=== PATIENT | male | born 1985 | race Caucasian/White ===

== ENCOUNTER 2024-09-21 12:58 | Observation (INO) | payer OTHER ==
--- NOTE | 2024-09-21 13:35 | XR ---
EXAMINATION TYPE: XR chest 2V DATE OF EXAM: 09/21/2024 1:29 PM COMPARISON: Chest radiographs from 09/21/2024. CLINICAL INDICATION: Male, 38 years old with history of Chest Pain; TECHNIQUE: XR chest 2V Frontal and lateral views of the chest. FINDINGS: Lungs/Pleura: There is no evidence of pleural effusion, focal consolidation, or pneumothorax. Pulmonary vascularity: Unremarkable. Heart/mediastinum: Cardiomediastinal silhouette is unremarkable. Musculoskeletal: No acute osseous pathology. Other findings: None IMPRESSION: No acute cardiopulmonary disease/process. [facility], , 09/21/2024 1:33 PM
[2024-09-21 13:38] LABS: Basophils # (A) 0.1 k/uL (0-0.2); Basophils % (A) 1 %; Eosinophils # (A) 0.2 k/uL (0-0.7); Eosinophils % (A) 2 %; HCT 49.4 % (39.0-53.0); HGB 16.2 gm/dL (13.0-17.5); Lymphocytes # (A) 2.1 k/uL (1.0-4.8); Lymphocytes % (A) 16 %; MCH 31.3 pg (25.0-35.0); MCHC 32.9 g/dL (31.0-37.0); MCV 95.2 fL (80.0-100.0); Monocytes # (A) 0.5 k/uL (0-1.0); Monocytes % (A) 4 %; Neutrophils # (A) 10.1 k/uL (1.3-7.7); Neutrophils % (A) 76 %; Platelet Count 331 k/uL (150-450); RBC 5.18 m/uL (4.30-5.90); RDW 12.3 % (11.5-15.5); WBC 13.3 k/uL (3.8-10.6)
[2024-09-21 13:47] LABS: Partial Thromboplastin Time 25.3 sec (22.0-30.0)
[2024-09-21 13:50] LABS: ALT 34 U/L (4-49); AST 26 U/L (17-59); African American GFR (CKD) >90 (>60 ml/min/1.73 sqM); Albumin 4.7 g/dL (3.5-5.0); Alkaline Phosphatase 101 U/L (38-126); Anion Gap 10 mmol/L; Blood Urea Nitrogen 10 mg/dL (9-20); Calcium 9.9 mg/dL (8.4-10.2); Carbon Dioxide 23 mmol/L (22-30); Chloride 106 mmol/L (98-107); Glucose 153 mg/dL (74-99); Magnesium 1.7 mg/dL (1.6-2.3); Non-African American GFR(CKD) >90 (>60 ml/min/1.73 sqM); Potassium 4.2 mmol/L (3.5-5.1); Sodium 139 mmol/L (137-145); Total Bilirubin 0.6 mg/dL (0.2-1.3); Total Protein 7.7 g/dL (6.3-8.2)
--- NOTE | 2024-09-21 14:08 | ED ---
Chest Pain HPI - General Chief Complaint: Chest Pain Stated Complaint: high bp, chest pain, hand numb Time Seen by Provider: 09/21/24 14:07 Source: patient, RN notes reviewed Mode of arrival: wheelchair Limitations: no limitations - History of Present Illness Initial Comments: 38-year-old male presenting with chest pain x 1 day with associated left hand numbness. States last night around 9 PM he began to experience an intermittent, sharp, left-sided chest pain. At first he attributed this to anxiety, however states it has worsened this morning and has been began to experience numbness of his left hand as well. Patient states he took his blood pressure at his aunts house and was high. Denies any known past medical history however states he has not been to a physician in a long time. Does not take any medications. States he has an extensive cardiac family history. - Related Data Home Medications Medication Instructions Recorded Confirmed No Known Home Medications 09/21/24 09/21/24 Allergies Allergy/AdvReac Type Severity Reaction Status Date / Time bee venom protein (honey bee) Allergy Anaphylaxis Verified 09/21/24 18:19 shellfish derived [Shellfish] Allergy Anaphylaxis Verified 09/21/24 18:19 Review of Systems ROS Statement: Those systems with pertinent positive or pertinent negative responses have been documented in the HPI. ROS Other: All systems not noted in ROS Statement are negative. EKG Findings - EKG Results: EKG: interpreted by GOKUL (EKG reveals normal sinus rhythm with frequent PVCs, no ST changes. Ventricular rate 92 bpm, OR interval 154, QRS duration 129, QT/QTc 365/450) Past Medical History Past Medical History: No Reported History Past Surgical History: Orthopedic Surgery Smoking Status: Current every day smoker Past Alcohol Use History: None Reported Past Drug Use History: Marijuana General Exam - General Exam Comments Initial Comments: Visual Physical Exam Vital signs reviewed General: Well-appearing, nontoxic, no acute distress. Head: Normocephalic, atraumatic Eyes: PERRLA, EOMI ENT: Airway patent Chest: Nonlabored breathing Skin: No visual rash, normal skin tone Neuro: Alert and oriented 3 Musculoskeletal: No gross abnormalities Limitations: no limitations General appearance: alert, in no apparent distress Head exam: Present: atraumatic, normocephalic, normal inspection Eye exam: Present: normal appearance, PERRL, EOMI. Absent: scleral icterus, conjunctival injection, periorbital swelling ENT exam: Present: normal exam, mucous membranes moist Respiratory exam: Present: normal lung sounds bilaterally. Absent: respiratory distress, wheezes, rales, rhonchi, stridor Cardiovascular Exam: Present: regular rate, normal rhythm, normal heart sounds. Absent: systolic murmur, diastolic murmur, rubs, gallop, clicks GI/Abdominal exam: Present: soft, normal bowel sounds. Absent: distended, tenderness, guarding, rebound, rigid Neurological exam: Present: alert, oriented X3, CN II-XII intact Psychiatric exam: Present: normal affect, normal mood Skin exam: Present: warm, dry, intact, normal color. Absent: rash Course Vital Signs 09/21/24 09/21/24 09/21/24 13:01 16:39 16:42 Temperature 97.9 F Pulse Rate 103 H 78 Pulse Rate [ 78 Apical] Respiratory 22 19 Rate Blood Pressure 207/98 180/122 O2 Sat by Pulse 97 98 Oximetry Chest Pain MDM - MDM I completed the quick note portion of this chart signed Tia Carias PA-C Was pt. sent in by a medical professional or institution (ROBE Robertson, OCEANIC SCIENCES PROFESSOR, urgent care, hospital, or care home...) When possible be specific @ -No Did you speak to anyone other than the patient for history (EMS, parent, family, police, friend...)? What history was obtained from this source @ -No Did you review nursing and triage notes (agree or disagree)? Why? @ -I reviewed and agree with nursing and triage notes Were old charts reviewed (outside hosp., previous admission, EMS record, old EKG, old radiological studies, urgent care reports/EKG's, care home records)? Report findings @ -No old charts were reviewed Differential Diagnosis (chest pain, altered mental status, abdominal pain women, abdominal pain men, vaginal bleeding, weakness, fever, dyspnea, syncope, headache, dizziness, GI bleed, back pain, seizure, CVA, palpatations, mental health, musculoskeletal)? @ -Differential Chest Pain: Stable Angina, Unstable Angina, STEMI, NSTEMI Aortic Dissection, Pneumothorax, Musculoskeletal, Esophageal Spasm GERD, Cholecystitis, Pancreatitis, Zoster, this is not meant to be an all-inclusive list. EKG interpreted by me (3pts min.). @ -As above X-rays interpreted by me (1pt min.). @ -X-ray reveals no acute process CT interpreted by me (1pt min.). @ -None done U/S interpreted by me (1pt. min.). @ -None done What testing was considered but not performed or refused? (CT, X-rays, U/S, labs)? Why? @ -None What meds were considered but not given or refused? Why? @ -None Did you discuss the management of the patient with other professionals (professionals i.e. , PA, OCEANIC SCIENCES PROFESSOR, lab, RT, psych nurse, social sciences department chair, manufacturing director, teacher, senior grants officer, nurse case management)? Give summary @ -I spoke with Shilpi from [facility] who accepts admission for ACS rule out Was smoking cessation discussed for >3mins.? @ -No Was critical care preformed (if so, how long)? @ -No Were there social determinants of health that impacted care today? How? (Homelessness, low income, unemployed, alcoholism, drug addiction, transportation, low edu. Level, literacy, decrease access to med. care, long term, rehab)? @ -No Was there de-escalation of care discussed even if they declined (Discuss DNR or withdrawal of care, Hospice)? DNR status @ -No What co-morbidities impacted this encounter? (DM, HTN, Smoking, COPD, CAD, Cancer, CVA, ARF, Chemo, Hep., AIDS, mental health diagnosis, sleep apnea, morbid obesity)? @ -None Was patient admitted / discharged? Hospital course, mention meds given and route, prescriptions, significant lab abnormalities, going to OR and other pertinent info. @ -Admitted. This is a 38-year-old male presenting to the ER chief complaint of chest pain x 1 day. No known risk factors however patient states he has not been seen by a doctor in time. Patient is initially hypertensive at 207/98, tachycardic at 103 bpm. Patient was given loading dose of aspirin and nitroglycerin patient reports mild improvement of symptoms. EKG reveals normal sinus rhythm with frequent PVCs. Lab work markable for mild leukocytosis at 13.3 and elevated glucose at 153. Chest x-ray reveals no acute process. Results discussed with patient. Patient remains hypertensive at 180/122 on reevaluation with heart rate of 70 bpm. I spoke with Shilpi from [facility] who accepts admission for ACS rule out as history is concerning for ACS. Patient is agreeable to plan. Undiagnosed new problem with uncertain prognosis? @ -No Drug Therapy requiring intensive monitoring for toxicity (Heparin, Nitro, Insulin, Cardizem)? @ -No Were any procedures done? @ -No Diagnosis/symptom? @ -Chest pain Acute, or Chronic, or Acute on Chronic? @ -Acute Uncomplicated (without systemic symptoms) or Complicated (systemic symptoms)? @ -Uncomplicated Side effects of treatment? @ -No Exacerbation, Progression, or Severe Exacerbation? @ -No Poses a threat to life or bodily function? How? (Chest pain, [place], [place], pneumonia, PE, COPD, DKA, ARF, appy, cholecystitis, CVA, Diverticulitis, Homicidal, Suicidal, threat to staff... and all critical care pts) @ -Yes, chest pain Disposition Clinical Impression: Chest pain Disposition: ADMITTED IP TO THIS HOSP Referrals: [facility] [NON-STAFF] - 1-2 days [facility] [NON-STAFF] - 1-2 days None,Stated [Primary Care Provider] - 1-2 days Forms: Area PCPs Time of Disposition: 18:45
[2024-09-21] MEDS: ASPIRIN 81 MG PO STA (17:15)
[2024-09-21] MEDS: NITROGLYCERIN SL TABS 0.4 MG TAB SUBLINGUAL STA (17:16)
[2024-09-21] MEDS ORDERED: NALOXONE 0.4 MG/ML 1 ML VIAL IV PRN (18:42)
[2024-09-21] MEDS ORDERED: KETOROLAC 15 MG/ML 1 ML VIAL IVP PRN (18:42)
[2024-09-21] MEDS ORDERED: ONDANSETRON 4 MG/2 ML VIAL IVP PRN (18:42)
[2024-09-21] MEDS ORDERED: MORPHINE SULFATE 4 MG/ML SYRINGE IV PRN (18:42)
[2024-09-22] MEDS: hydrALAZINE HCL 20 MG/ML 1 ML VIAL IVP STA (01:19)
[2024-09-22] MEDS: ACETAMINOPHEN TAB 325 MG TAB PO PRN (01:26)
[2024-09-22] MEDS: amLODIPine 10 MG TAB PO SCH (09:34)
[2024-09-22] MEDS: hydrALAZINE HCL 20 MG/ML 1 ML VIAL IVP PRN (09:34)
[2024-09-22] MEDS ORDERED: METOPROLOL TARTRATE 12.5 MG TAB PO SCH (10:00)
[2024-09-22] MEDS: NICOTINE 14MG/24HR PATCH TRANSDERM SCH (11:23)
[2024-09-22] MEDS: ASPIRIN 81 MG PO SCH (11:24)
[2024-09-22] MEDS: METOPROLOL TARTRATE 25 MG TAB PO SCH (11:24)
[2024-09-22] MEDS: hydrALAZINE HCL 25 MG TAB PO SCH (11:24)
--- NOTE | 2024-09-22 11:46 | P.CRDCN ---
History of Present Illness Consult date: 09/22/24 Consult reason: chest pain History of present illness: This is a 38-year-old male patient does not follow with a physician and denies any past medical history. We have been asked to evaluate the patient for chest pain. Patient states that he developed sharp pain that is a little bit of pressure comes and goes in his chest. Onset while he was sitting. It does not seem to occur with physical activity. It started about 2 to 3 hours after d inner last night. He also complains of hearing his heartbeat in his right ear. Patient is normally active, works in a [employer] factory. Blood pressure 196/88, heart rate 85, pulse ox 98% on room air. Repeat blood pressure 170/89. Patient is an active smoker. Patient has been started on amlodipine 10 mg IV hydralazine as needed. -EKG: Sinus rhythm PVCs, mild IVCD -Chest x-ray: No acute process -Laboratory studies: WBC 13.3, hemoglobin 16.2, electrolytes and renal function normal. Troponin negative x 3. -Home cardiac medications: None Review Of Systems: At the time of my exam: CONSTITUTIONAL: Denies fever or chills. HEENT: Denies blurred vision, vision changes, or eye pain. Denies hemoptysis CARDIOVASCULAR: Denies chest pain. Denies orthopnea. Denies PND. Denies palpitations RESPIRATORY: Denies shortness of breath. GASTROINTESTINAL: Denies abdominal pain. Denies nausea or vomiting. HEMATOLOGIC: Denies bleeding disorders. GENITOURINARY: Denies any blood in urine. SKIN: Denies puritis. Denies rash. Physical examination: Gen: This is a obese 38-year-old male in no acute distress VS: reviewed HEENT: Head is atraumatic, normocephalic. Pupils equal, round. Sclerae is anicteric. NECK: Supple. No JVD. LUNGS: Clear to auscultation. No wheezes or rhonchi. No intercostal retract ions. HEART: Regular rate and rhythm. No murmur. ABDOMEN: Soft No tenderness. EXTREMITIES: No pedal edema. No calf tenderness. NEUROLOGICAL: Patient is awake, alert and oriented x3. Assessment: Atypical chest pain, acute coronary syndrome ruled out Accelerated hypertension Chest pain possibly related to accelerated hypertension Tobacco use and dependence Plan: Continue patient on amlodipine 10 mg daily Change aspirin to 81 mg daily Discontinue IV hydralazine as needed and start patient on hydralazine 25 mg 3 times daily Start patient on Lopressor 25 mg 3 times daily Monitor blood pressure closely Obtain 2-D echocardiogram and Doppler study to assess cardiac structure and function Schedule patient for exercise stress test tomorrow when blood pressure is hopefully improved. Smoking cessation, patient will be provided the [place] quit line information at discharge Further recommendations to follow based upon clinical course Thank you kindly for this consultation. Nurse practitioner note has been reviewed, I agree with documented findings and plan of care. Patient was seen and examined. Past Medical History Past Medical History: No Reported History History of Any Multi-Drug Resistant Organisms: None Reported Past Surgical History: Orthopedic Surgery Smoking Status: Current every day smoker Medications and Allergies Home Medications Medication Instructions Recorded Confirmed Type No Known Home Medications 09/21/24 09/21/24 History Allergies Allergy/AdvReac Type Severity Reaction Status Date / Time bee venom protein (honey bee) Allergy Anaphylaxis Verified 09/21/24 18:19 shellfish derived [Shellfish] Allergy Anaphylaxis Verified 09/21/24 18:19 Physical Exam Vitals: Vital Signs Temp Pulse Pulse Pulse Resp BP BP 09/22/24 07:00 85 16 196/88 09/22/24 02:00 97.9 F 61 09/21/24 23:20 98.1 F 72 18 09/21/24 23:15 97.8 F 61 18 145/87 09/21/24 20:41 75 16 155/73 09/21/24 16:42 78 09/21/24 16:39 78 19 180/122 09/21/24 13:01 97.9 F 103 H 22 207/98 BP Pulse Ox 09/22/24 07:00 98 09/22/24 02:00 161/82 99 09/21/24 23:20 181/113 97 09/21/24 23:15 93 L 09/21/24 20:41 97 09/21/24 16:42 09/21/24 16:39 98 09/21/24 13:01 97 Intake and Output 09/21/24 09/22/24 09/22/24 22:59 06:59 14:59 Intake Total 118 Balance 118 Intake: Oral 118 Other: Voiding Method Toilet Weight 119.295 kg Results 09/21/24 13:20 09/21/24 13:20 Cardiac Enzymes 09/21/24 09/21/24 09/21/24 Range/Units 13:20 13:20 19:45 AST 26 (17-59) U/L Troponin I <0.012 <0.012 (0.000-0.034) ng/mL 09/22/24 Range/Units 00:42 AST (17-59) U/L Troponin I <0.012 (0.000-0.034) ng/mL Coagulation 09/21/24 Range/Units 13:20 PT 11.0 (10.0-12.5) sec APTT 25.3 (22.0-30.0) sec CBC 09/21/24 Range/Units 13:20 WBC 13.3 H (3.8-10.6) k/uL RBC 5.18 (4.30-5.90) m/uL Hgb 16.2 (13.0-17.5) gm/dL Hct 49.4 (39.0-53.0) % Plt Count 331 (150-450) k/uL Comprehensive Metabolic Panel 09/21/24 Range/Units 13:20 Sodium 139 (137-145) mmol/L Potassium 4.2 (3.5-5.1) mmol/L Chloride 106 (98-107) mmol/L Carbon Dioxide 23 (22-30) mmol/L BUN 10 (9-20) mg/dL Creatinine 0.72 (0.66-1.25) mg/dL Glucose 153 H (74-99) mg/dL Calcium 9.9 (8.4-10.2) mg/dL AST 26 (17-59) U/L ALT 34 (4-49) U/L Alkaline Phosphatase 101 (38-126) U/L Total Protein 7.7 (6.3-8.2) g/dL Albumin 4.7 (3.5-5.0) g/dL Current Medications Generic Name Dose Route Start Last Admin Trade Name Freq PRN Reason Stop Dose Admin Acetaminophen 650 mg 09/21/24 18:42 09/22/24 01:26 Acetaminophen Tab 325 Mg Tab PO 650 mg Q6HR PRN Administration Mild Pain or Fever > 100.5 Amlodipine Besylate 10 mg 09/22/24 09:30 09/22/24 09:34 Amlodipine 10 Mg Tab PO 10 mg DAILY WANDER Administration Hydralazine HCl 10 mg 09/22/24 09:16 09/22/24 09:34 Hydralazine Hcl 20 Mg/Ml 1 Ml Vial IVP 10 mg Q4HR PRN Administration Blood Pressure - High Ketorolac Tromethamine 15 mg 09/21/24 18:42 Ketorolac 15 Mg/Ml 1 Ml Vial IVP 09/24/24 18:44 Q6HR PRN Moderate Pain (Scale 4 to 6) Morphine Sulfate 4 mg 09/21/24 18:42 Morphine Sulfate 4 Mg/Ml Syringe IV Q4HR PRN Severe Pain (Scale 7 to 10) Naloxone HCl 0.2 mg 09/21/24 18:42 Naloxone 0.4 Mg/Ml 1 Ml Vial IV Q2M PRN Opioid Reversal Ondansetron HCl 4 mg 09/21/24 18:42 Ondansetron 4 Mg/2 Ml Vial IVP Q8HR PRN Nausea And Vomiting Intake and Output 09/21/24 09/22/24 09/22/24 22:59 06:59 14:59 Intake Total 118 Balance 118 Intake: Oral 118 Other: Voiding Method Toilet Weight 119.295 kg 09/21/24 13:20 09/21/24 13:20
--- NOTE | 2024-09-22 15:39 | P.HPIM ---
History of Present Illness H&P Date: 09/22/24 This is a pleasant 38-year-old male who presented to the emergency department with chest pain and chest pressure and also reports feeling dizzy and lightheaded with double vision. Patient reports he does not have a primary care provider and has not seen a doctor in over 10 years and denies any significant past medical history other than smokes cigarettes. Troponins were negative x 3 and other labs reviewed and within normal limits. Blood sugar was 153 random will add a hemoglobin A1c as patient has not been seen by a doctor in over 10 years has poor eating habits and is obese. Chest x-ray showing no acute cardiopulmonary process, EKG was done showing sinus rhythm with frequent PVCs. Patient will be admitted on telemetry monitoring with cardiology on consult. Cardiology did evaluate the patient early this morning recommend n.p.o. at midnight and will undergo treadmill stress testing. 2D echo is ordered and pending at this time. REVIEW OF SYSTEMS: CONSTITUTIONAL: No fever, no malaise, no fatigue. HEENT: No recent visual problems or hearing problems. Denied any sore throat. CARDIOVASCULAR: Reports of chest pain that has resolved, orthopnea, PND, no palpitations, no syncope. PULMONARY: No shortness of breath, no cough, no hemoptysis. GASTROINTESTINAL: No diarrhea, no nausea, no vomiting, no abdominal pain. NEUROLOGICAL: No headaches, no weakness, no numbness. HEMATOLOGICAL: Denies any bleeding or petechiae. GENITOURINARY: Denies any burning micturition, frequency, or urgency. MUSCULOSKELETAL/RHEUMATOLOGICAL: Denies any joint pain, swelling, or any muscle pain. ENDOCRINE: Denies any polyuria or polydipsia. The rest of the 14-point review of systems is negative. PHYSICAL EXAMINATION: GENERAL: The patient is alert and oriented x3, not in any acute distress. Well developed, obese HEENT: Pupils are round and equally reacting to light. EOMI. No scleral icterus. No conjunctival pallor. Normocephalic, atraumatic. No pharyngeal erythema. No thyromegaly. CARDIOVASCULAR: S1 and S2 muffled PULMONARY: Chest is clear to auscultation, no wheezing or crackles. ABDOMEN: Soft, obese, nontender, nondistended, normoactive bowel sounds. No palpable organomegaly. MUSCULOSKELETAL: No joint swelling or deformity. EXTREMITIES: No cyanosis, clubbing, or pedal edema. NEUROLOGICAL: Gross neurological examination did not reveal any focal deficits. SKIN: No rashes. Assessment: Chest pain, ruled out ACS Hypertension, no reported history although most likely has been having hypertension. Patient has not been to a doctor in at least over 10 years Obesity with a BMI of 36.7 Mild leukocytosis, possibly reactive. Patient denies any shortness of breath or cough, denies any pain or burning or frequency with urination and does not appear infectious Continued ongoing nicotine abuse GI prophylaxis DVT prophylaxis Full code Plan: Patient was admitted under observation for cardiology evaluation for chest pain. ACS was ruled out 2D echo is ordered and pending and patient will undergo exercise stress test in the morning Follow-up on labs and will also obtain hemoglobin A1c as blood sugar was elevated with no significant history although patient reports has not been to a doctor in over 10 years N.p.o. at midnight for stress testing and will follow-up with cardiology once report is available Patient being started on blood pressure medications and will monitor overnight with continued telemetry monitoring and hopeful for improvements in blood pres sure Encourage complete tobacco cessation and will provide a nicotine patch Possible discharge planning in the next 24 to 48 hours Patient will need resources to establish with a primary care provider on discharge The impression and plan of care has been dictated by Shilpi Mahmood, Nurse Practitioner as directed. Dr. Dia MD I have performed a history and examination and MDM of this patient, discussed the same with the dictator, and agree with the dictator's assessment and plan as written ,documented as a scribe. Based on total visit time, I have performed more than 50% of the visit. Past Medical History Past Medical History: No Reported History History of Any Multi-Drug Resistant Organisms: None Reported Past Surgical History: Orthopedic Surgery Smoking Status: Current every day smoker Medications and Allergies Home Medications Medication Instructions Recorded Confirmed Type No Known Home Medications 09/21/24 09/21/24 History Allergies Allergy/AdvReac Type Severity Reaction Status Date / Time bee venom protein (honey bee) Allergy Anaphylaxis Verified 09/21/24 18:19 shellfish derived [Shellfish] Allergy Anaphylaxis Verified 09/21/24 18:19 Physical Exam Vitals: Vital Signs Temp Pulse Pulse Pulse Resp BP BP 09/22/24 02:00 97.9 F 61 161/82 09/21/24 23:20 98.1 F 72 18 181/113 09/21/24 23:15 97.8 F 61 18 145/87 09/21/24 20:41 75 16 155/73 09/21/24 16:42 78 09/21/24 16:39 78 19 180/122 09/21/24 13:01 97.9 F 103 H 22 207/98 Pulse Ox 09/22/24 02:00 99 09/21/24 23:20 97 09/21/24 23:15 93 L 09/21/24 20:41 97 09/21/24 16:42 09/21/24 16:39 98 09/21/24 13:01 97 Intake and Output 09/21/24 09/22/24 09/22/24 22:59 06:59 14:59 Other: Voiding Method Toilet Weight 119.295 kg Results CBC & Chem 7: 09/21/24 13:20 09/21/24 13:20 Labs: Abnormal Lab Results - Last 24 Hours (Table) 09/21/24 09/21/24 Range/Units 13:20 13:20 WBC 13.3 H (3.8-10.6) k/uL Neutrophils # 10.1 H (1.3-7.7) k/uL Glucose 153 H (74-99) mg/dL Thrombosis Risk Factor Assmnt - DVT/VTE Prophylaxis DVT/VTE Prophylaxis: Pharmacologic Prophylaxis ordered - Choose All That Apply Any of the Below Risk Factors Present?: No Assessment and Plan Time with Patient: Greater than 30
[2024-09-22] MEDS: FAMOTIDINE 20 MG TAB PO SCH (17:39)
[2024-09-22 20:13] VITALS: RESP 18
[2024-09-23 07:32] VITALS: BP 144/94; PULSE 77; TEMP 97.7
[2024-09-23 08:35] LABS: Basophils # (A) 0.18 X 10*3/uL (0.00-0.10); Basophils % (A) 1.6 %; Eosinophils # (A) 0.36 X 10*3/uL (0.04-0.35); Eosinophils % (A) 3.2 %; HCT 45.4 % (39.6-50.0); HGB 14.9 g/dL (13.0-17.0); Lymphocytes # (A) 3.56 X 10*3/uL (0.90-5.00); Lymphocytes % (A) 31.6 %; MCHC 32.8 g/dL (32.0-37.0); MCV 94.6 FL (80.0-97.0); Mean Platelet Volume 12.1 FL (9.5-12.2); Monocytes # (A) 1.08 X 10*3/uL (0.20-1.00); Monocytes % (A) 9.6 %; NRBC Per 100 WBC 0 X 10*3/uL (0.00-0.01); Neutrophils # (A) 6.05 X 10*3/uL (1.80-7.70); Neutrophils % (A) 53.6 %; Platelet Count 250 X 10*3/uL (140-440); RDW 12.9 % (11.5-14.5); WBC 11.27 X 10*3/uL (4.50-10.00)
[2024-09-23 08:44] LABS: ALT 32 U/L (10-49); AST 24 U/L (14-35); Albumin/Globulin Ratio 1.54 Ratio (1.60-3.17); Alkaline Phosphatase 85 U/L (41-126); BUN/Creat Ratio 18.43 Ratio (12.00-20.00); Blood Urea Nitrogen 12.9 mg/dL (9.0-27.0); Calcium 9.2 mg/dL (8.7-10.3); Carbon Dioxide 23.3 mmol/L (21.6-31.8); Chloride 104 mmol/L (96-109); Globulin 2.6 g/dL (1.6-3.3); Glucose 109 mg/dL (70-110); Potassium 4.1 mmol/L (3.5-5.5); Sodium 138 mmol/L (135-145); Total Bilirubin 0.7 mg/dL (0.3-1.2); Total Protein 6.6 g/dL (6.2-8.2)
--- NOTE | 2024-09-23 08:53 | P.PN ---
Subjective Progress Note Date: 09/23/24 Consult reason: chest pain History of present illness: This is a 38-year-old male patient does not follow with a physician and denies any past medical history. We have been asked to evaluate the patient for chest pain. Patient states that he developed sharp pain that is a little bit of pressure comes and goes in his chest. Onset while he was sitting. It does not seem to occur with physical activity. It started about 2 to 3 hours after dinner last night. He also complains of hearing his heartbeat in his right ear. Patient is normally active, works in a [employer] factory. Blood pressure 196/88, heart rate 85, pulse ox 98% on room air. Repeat blood pressure 170/89. Patient is an active smoker. Patient has been started on amlodipine 10 mg IV hydralazine as needed. -EKG: Sinus rhythm PVCs, mild IVCD -Chest x-ray: No acute process -Laboratory studies: WBC 13.3, hemoglobin 16.2, electrolytes and renal function normal. Troponin negative x 3. -Home cardiac medications: None 09/23/2024 Patient seen and examined. He is now on the 6 floor. He is scheduled for exercise stress test today. Blood pressure readings are improved from yesterday with the medication changes made. Blood pressure 144/94, heart rate 77, pulse ox 98% on room air. Repeat blood work reveals WBC 11.2, hemoglobin 14.9, electrolytes and renal function are normal. A1c 6.1. Echocardiogram report is pending. Physical examination: Gen: This is a obese 38-year-old male in no acute distress VS: reviewed HEENT: Head is atraumatic, normocephalic. Pupils equal, round. Sclerae is anicteric. NECK: Supple. No JVD. LUNGS: Clear to auscultation. No wheezes or rhonchi. No intercostal retractions. HEART: Regular rate and rhythm. No murmur. ABDOMEN: Soft No tenderness. EXTREMITIES: No pedal edema. No calf tenderness. NEUROLOGICAL: Patient is awake, alert and oriented x3. Assessment: Atypical chest pain, acute coronary syndrome ruled out Accelerated hypertension Chest pain possibly related to accelerated hypertension Tobacco use and dependence Plan: Continue patient on amlodipine 10 mg daily, aspirin to 81 mg daily, hydralazine 25 mg 3 times daily, Lopressor 25 mg 3 times daily Obtain 2-D echocardiogram and Doppler study report Patient is scheduled for exercise stress test this morning Smoking cessation, patient will be provided the [place] quit line information at discharge If stress test and echocardiogram are unremarkable, patient is cleared for discharge and may follow-up in the office with Dr. Desouza in 2 weeks. Nurse practitioner note has been reviewed, I agree with documented findings and plan of care. Patient was seen and examined. Objective - Vital Signs Vital signs: Vital Signs Temp 97.6 F 09/23/24 01:29 Pulse 68 09/23/24 01:29 Resp 18 09/23/24 01:29 BP 158/76 09/23/24 01:29 Pulse Ox 96 09/23/24 01:29 FiO2 Intake & Output 09/22/24 09/23/24 09/23/24 18:59 06:59 18:59 Intake Total 236 0 Balance 236 0 Intake: Oral 236 0 Other: Voiding Method Toilet # Voids 2 2 - Labs CBC & Chem 7: 09/23/24 05:43 09/23/24 05:43
--- NOTE | 2024-09-23 10:06 | CA ---
Transthoracic Echo Report Name: Fredy Thompson Age: 38 Gender: M : 1985 Exam Date: 09/22/2024 10:42 Exam Location: [facility] Ht (in): 71 Wt (lb): 263 Ordering Physician: Shilpi Mahmood Attending/Referring Phys: Geriatric Social Worker Rachelle Fry RDCS Procedure CPT: Indications: Chest Pain Cardiac Hx: Technical Quality: Fair Contrast 1: Total Dose (mL): Contrast 2: Total Dose (mL): MEASUREMENTS (Male / Female) Normal Values 2D ECHO LV Diastolic Diameter PLAX 5.3 cm 4.2 - 5.9 / 3.9 - 5.3 cm LV Systolic Diameter PLAX 3.3 cm IVS Diastolic Thickness 1.6 cm 0.6 - 1.0 / 0.6 - 0.9 cm LVPW Diastolic Thickness 1.6 cm 0.6 - 1.0 / 0.6 - 0.9 cm LV Relative Wall Thickness 0.6 RV Internal Dim ED PLAX 3.9 cm LVOT Diameter 2.5 cm LA Systolic Diameter LX 4.4 cm 3.0 - 4.0 / 2.7 - 3.8 cm M-MODE Aortic Root Diameter MM 3.4 cm AV Cusp Separation MM 2.3 cm DOPPLER AV Peak Velocity 227.4 cm/s AV Peak Gradient 20.7 mmHg AV Mean Velocity 143.3 cm/s AV Mean Gradient 9.5 mmHg AV Velocity Time Integral 43.6 cm LVOT Peak Velocity 134.9 cm/s LVOT Peak Gradient 7.3 mmHg LVOT Velocity Time Integral 25.8 cm LVOT Stroke Volume 126.2 cm??? LVOT Stroke Volume Index 53.3 ml/m??? LVOT Cardiac Index 4157.8 cm???/min???m??? AV Area Cont Eq vti 2.9 cm??? AV Area Cont Eq pk 2.9 cm??? Mitral E Point Velocity 118.6 cm/s Mitral A Point Velocity 85.6 cm/s Mitral E to A Ratio 1.4 MV Deceleration Time 159.8 ms MV E' Velocity 6.4 cm/s Mitral E to MV E' Ratio 18.5 FINDINGS Left Ventricle Left ventricular ejection fraction is estimated at 55-60 %. Left ventricular cavity size normal. Moderate concentric left ventricular hypertrophy. No obvious regional wall motion abnormalities. Right Ventricle Moderate right ventricular dilatation. Unable to estimate the right ventricular systolic pressure. Right Atrium Normal right atrial size. No right atrial thrombus or mass seen. Left Atrium Mildly increased left atrial diameter. No left atrial thrombus or mass present. Mitral Valve Structurally normal mitral valve. No mitral stenosis, regurgitation or prolapse. Aortic Valve Trileaflet aortic valve. Aortic valve sclerosis. Mild aortic stenosis with a peak gradient of 14 mmHg and a mean gradient of 10 mmHg. Trace to mild aortic regurgitation. Tricuspid Valve Structurally normal tricuspid valve. No tricuspid stenosis, regurgitation or prolapse. Pulmonic Valve Structurally normal pulmonic valve. No pulmonic regurgitation. Pericardium No pericardial or pleural effusion. Aorta Normal size aortic root and proximal ascending aorta. CONCLUSIONS Normal LV size and systolic function with mild concentric LVH. Mild to moderate right ventricular enlargement. Aortic valve sclerosis no significant gradient. Mitral and the calcification. No pericardial effusion. Mild mitral and tricuspid regurgitation Previewed by: Dr. Jessy Desouza MD (Electronically Signed) Final Date: 23 September 2024 10:05
--- NOTE | 2024-09-23 11:31 | CA ---
Exercise Stress Test Report Name: Fredy Thompson Exam Date: 09/23/2024 10:18 Exam Location: [facility] Ht (in): 71 Wt (lb): 263 BSA: 2.37 Ordering Phys: Karen Castro Referring Phys: SAMANTHA Technologist: Vinny Adam Age: 38 Gender: M : 1985 Procedure CPT: Indications: Chest Pain ICD-10 Codes: Patient History: CHEST PAIN, HTN, CURRENT SMOKER, FAMILY HX OF HEART DISEASE Medications: Meds past 24 hrs: Pretest Chest Pain: STRESS TEST [place] Protocol Exercise Duration (min:sec): 07:[address] Depressions (mm): Angina Score: Lind Score: Resting HR (bpm): 79 Peak HR (bpm): 148 Resting BP (mmHg): 167 / 91 Peak BP (mmHg): 234 / 52 MPHR: 181 Target HR: 154 % MPHR: 82 METS: 10.3 Total Dose: Peak Dose: Atropine: Double Product: 99732 BP Response: Stress Termination: SHORTNESS OF BREATH Stress Symptoms: Stress Summary: ECG ANALYSIS Resting ECG: Stress ECG: CONCLUSIONS Baseline EKG revealed a normal sinus rhythm with isolated PVCs no acute changes. Patient walked on a standard [place] protocol for [address] fatigue and shortness of breath stress test was there.. He achieved 82% of predicted maximum heart rate. He received beta meliton. This morning. However no EKG changes to indicate ischemia. There were isolated PVCs during exercise without any symptoms of angina. No angina developed shortness of breath poor exercise capacity overall. However this is a technically inconclusive stress test but no evidence of ischemia at 82% of predicted maximum heart rate. Dr. Jessy Desouaz MD (Electronically Signed) Final Date: 23 September 2024 11:30
--- NOTE | 2024-09-23 13:48 | P.DS ---
Providers Date of admission: 09/21/24 20:04 Attending physician: Purnima Craven Consults: 09/21/24 18:42 Consult Physician Urgent Consulting Provider: [facility] Consult Reason/Comments: chest pain Do you want consulting provider notified?: Yes Primary care physician: Stated None Hospital Course: Final Diagnosis Chest pain, ruled out ACS Hypertension, no reported history although most likely has been having hypertension. Patient has not been to a doctor in at least over 10 years Obesity with a BMI of 36.7 Mild leukocytosis, possibly reactive. Patient denies any shortness of breath or cough, denies any pain or burning or frequency with urination and does not appear infectious Continued ongoing nicotine abuse Discharge Disposition Patient stable for discharge home. Has been started on 3 new medications for blood pressure including amlodipine, hydralazine and metoprolol. Patient has been started on aspirin 81 mg daily. Patient to follow up with cardiology in the office in 2 weeks. Patient recommended for outpatient sleep study as well. He was given information for pulmonary on follow up. Additionally patient recommended to follow up with and establish care with a family doctor. Hospital Course This is a pleasant 38-year-old male who presented to the emergency department with chest pain and chest pressure and also reports feeling dizzy and lightheaded with double vision. Patient reports he does not have a primary care provider and has not seen a doctor in over 10 years and denies any significant past medical history other than smokes cigarettes. Troponins were negative x 3 and other labs reviewed and within normal limits. Blood sugar was 153 random will add a hemoglobin A1c as patient has not been seen by a doctor in over 10 years has poor eating habits and is obese. Chest x-ray showing no acute cardiopulmonary process, EKG was done showing sinus rhythm with frequent PVCs. Patient will be admitted on telemetry monitoring with cardiology on consult. Cardiology did evaluate the patient he went for stress test which reveals no EKG changes to indicate ischemia. HE had isolated PVCs. He had poor exercise tolerance overall. It was overall inconclusive but no inducible ischemia at 82% target heart rate. Echocardiogram reveals EF 55-60%with mild to moderate right ventricular enlargement. Aortic valve sclerosis no significant gradient. No pericardial effusion. Mild mitral and tricuspid regurgitation. He is evaluated today up ambulating around the room. No complaints of chest pain or shortness of breath. He is cleared for discharge home. Please see medication reconciliation for a list of current medications. Thank you for allowing us to participate in the care of this patient. The impression and plan of care has been dictated by Sarah Lemos, Nurse Practitioner as directed. Dr. Dia MD I have performed a history and physical examination and medical decision making of this patient, discussed the same with the dictator, and agree with the dictators assessment and plan as written, documented as a scribe. Based on total visit time, I have performed more than 50% of this visit. Patient Condition at Discharge: Stable Plan - Discharge Summary New Discharge Prescriptions: New hydrALAZINE HCL [Apresoline] 25 mg PO TID #90 tab Aspirin 81 mg PO DAILY #30 tab amLODIPine [Norvasc] 10 mg PO DAILY #30 tab Famotidine [Pepcid] 20 mg PO DAILY #30 tab Metoprolol Tartrate [Lopressor] 25 mg PO TID #90 tab Discharge Medication List Aspirin 81 mg PO DAILY #30 tab 09/23/24 [Rx] Famotidine [Pepcid] 20 mg PO DAILY #30 tab 09/23/24 [Rx] Metoprolol Tartrate [Lopressor] 25 mg PO TID #90 tab 09/23/24 [Rx] amLODIPine [Norvasc] 10 mg PO DAILY #30 tab 09/23/24 [Rx] hydrALAZINE HCL [Apresoline] 25 mg PO TID #90 tab 09/23/24 [Rx] Follow up Appointment(s)/Referral(s): Jessy Desouza MD [STAFF PHYSICIAN] - 2 Weeks [facility] [NON-STAFF] - 1-2 days [facility] [NON-STAFF] - 1-2 days None,Stated [Primary Care Provider] - 1-2 days Hugh Corral MD [STAFF PHYSICIAN] - 1 Week Activity/Diet/Wound Care/Special Instructions: Establish care with a family doctor Follow up with cardiology in the office in 1 to 2 weeks Wound recommend outpatient sleep study to rule out underlying sleep apnea. Follow up with [facility] Dr Corral in the office to establish and discuss sleep study. Discharge/Stand Alone Forms: Area PCPs Discharge Disposition: HOME SELF-CARE
== END 2024-09-23 16:05 | disposition home or self-care (01) ==
LOC: EC 12:58 → 1SOBS 20:04 → 6NMEDSUR 09-22 13:54
PROVIDERS: ADMIT Hospitalist; ATTEND Hospitalist
DX: R07.89 Other chest pain (principal); I10 Essential (primary) hypertension; D72.829 Elevated white blood cell count, unspecified; F17.210 Nicotine dependence, cigarettes, uncomplicated; E66.9 Obesity, unspecified; Z68.36 Body mass index [BMI] 36.0-36.9, adult
CPT/HCPCS: 96374; 96376; 99285; 36415; 93005; 93017; 93306; 80053 ×2; 83735; 84484 ×2; 85025 ×2; 85610; 85730; 83036; 71046; G0378 ×3; S4990 ×2; J0360